=== PATIENT | female | born 1955 | race Caucasian/White ===

== ENCOUNTER 2017-09-30 03:40 | Emergency (ER) | payer OTHER ==
[~2017-09-30] VITALS: Ht 152.4 cm; Wt 90.7 kg
--- NOTE | 2017-09-30 04:21 | ED GI/GU/ABDOMINAL COMPLAINT ---
History of Present Illness General Chief Complaint: Abdominal Pain/Flank Pain Stated Complaint: CONSTIPATION AND ABD PAIN Source: patient, family, old records Exam Limitations: no limitations Vital Signs & Intake/Output Vital Signs & Intake/Output Vital Signs Date Time Temp Pulse Resp B/P B/P Pulse O2 O2 Flow FiO2 Mean Ox Delivery Rate 09/30 0351 99.4 94 18 126/84 96 Room Air Allergies Coded Allergies: NO KNOWN ALLERGIES (08/03/13) Reconcile Medications Polyethylene Glycol 3350 (Miralax) 17 GRAM/DOSE POWDER 17 GM PO DAILY constipation mix with water, juice, soda, coffee or tea use until stools soft and regular Triage Note: PT HERE WITH C/O ABD PAIN X 1 WEEK. PT REPORTS HAVING RIGHT SHOULDER REPLACEMENT ON 09/16/17 AND BEING ON DILAUDID FOR PAIN. PT REPORTS HAVING BEEN CONSTIPATED AND WAS GIVEN MAG CITRATE A WEEK AGO WITH RELIEF. PT STATES THAT THE ABD PAIN HAS BEEN GETTING WORSE ALTHOUGH SHE HAS HAD A SMALL BM TODAY. PT REPORTS HX OF DIVERTICULITIS BUT STATES THAT THIS DOES NOT FEEL THE SAME. Triage Nurses Notes Reviewed? yes LMP (ages 10-50): post menopausal ? n Is pt currently ? No Onset: Last week Duration: week(s):, constant, continues in ED, getting worse Timing: recent history Quality/Severity: aching, fullness, moderate Location: generalized abdomen Radiation: no radiation Activities at Onset: none Prior Abdominal Problems: none Past Sexual History: Unobtainable at this time No Modifying Factors: none Associated Symptoms: abdominal pain HPI: 2 weeks prior to admission patient had right shoulder replacement taking Dilaudid for analgesia. Since this time she's been having difficulty passing stool with increasing abdominal distention. Several days prior to admission she stopped Dilaudid. Denies fever chills nausea vomiting diarrhea chest pain cough shortness breath headache dysuria rash bleeding. Past History Travel History Traveled to [place] past 21 day No Medical History Any Pertinent Medical History? see below for history Gastrointestinal: diverticulitis Surgical History Surgical History: non-contributory Psychosocial History What is your primary language Bruneian Tobacco Use: Never used ETOH Use: denies use Illicit Drug Use: denies illicit drug use Family History Hx Contributory? No Review of Systems Review of Systems Constitutional: Reports: no symptoms. EENTM: Reports: no symptoms. Respiratory: Reports: no symptoms. Cardiovascular: Reports: no symptoms. GI: Reports: see HPI, abdominal pain, constipation. Genitourinary: Reports: no symptoms. Musculoskeletal: Reports: no symptoms. Skin: Reports: no symptoms. Neurological/Psychological: Reports: no symptoms. Hematologic/Endocrine: Reports: no symptoms. Immunologic/Allergic: Reports: no symptoms. All Other Systems: Reviewed and Negative Physical Exam Physical Exam General Appearance: well developed/nourished, alert, awake, anxious, obese Head: atraumatic, normal appearance Eyes: Bilateral: normal appearance, PERRL, EOMI, normal inspection. Ears, Nose, Throat, Mouth: hearing grossly normal, moist mucous membrane Neck: normal inspection, supple, full range of motion, normal alignment Respiratory: normal breath sounds, chest non-tender, no respiratory distress, quiet respiration, lungs clear Cardiovascular: regular rate/rhythm, normal peripheral pulses, norml femoral pulses equa Peripheral Pulses: 4+ carotid (R), 4+ carotid (L) Gastrointestinal: normal bowel sounds, soft, non-tender, no organomegaly Back: normal inspection, normal range of motion Extremities: no ligament instability Neurologic/Psych: no motor/sensory deficits, awake, alert, oriented x 3, normal gait, normal mood/affect, 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 No Sepsis Present: No Sepsis Focused Exam Completed? No Progress Differential Diagnosis: bowel obstruction, gastritis, SBO Plan of Care: Orders Procedure Date/time Status Enema 09/30 0540 Active Diagnostic Imaging: Viewed by Me: Radiology Read. Discussed w/RAD: Radiology Read. Radiology Impression: Unremarkable bowel gas pattern. Initial ED EKG: none Comments: Better after enema Departure Departure Time of Disposition: 655 Disposition: HOME OR SELF CARE Condition: Stable Clinical Impression Primary Impression: Constipation due to pain medication Referrals: Shivam LINDSAY,Yehuda White (PCP/Family) Departure Forms: Customer Survey General Discharge Information Prescriptions: Current Visit Scripts Polyethylene Glycol 3350 (Miralax) 17 GM PO DAILY #527 GM mix with water, juice, soda, coffee or tea use until stools soft and regular
--- NOTE | 2017-09-30 05:31 | RADIOLOGY REPORT ---
EXAMINATION: ABDOMEN 1 VIEW CLINICAL INFORMATION: Constipation. COMPARISON: None. TECHNIQUE: A supine view of the abdomen is provided. FINDINGS: There are no dilated loops of small bowel. There are no air-fluid levels. There is no appendicolith. The visualized lung bases are clear. There is mild medial hip joint space narrowing bilaterally with mild lateral acetabular osteophyte formation. The osseous structures are otherwise unremarkable. IMPRESSION: Unremarkable bowel gas pattern.
[2017-09-30] MEDS ORDERED: MIRALAX119 GM PO (06:26)
[2017-09-30 06:57] VITALS: BP 122/82
== END 2017-09-30 06:57 ==
LOC: ERH 03:40
DX: R10.84 Generalized abdominal pain (principal); K59.00 Constipation, unspecified
CPT/HCPCS: 74021